=== PATIENT | male | born 1945 | race Caucasian/White ===

== ENCOUNTER 2021-11-13 23:02 | Observation (INO) ==
[2021-11-13] MEDS ORDERED: *HR* Metoprolol 5 MG/5 ML VIAL IVP ONE (23:10)
[2021-11-13 23:24] LABS: Basophils # 0.1 K/mcL (0.0-0.2); Basophils % 0.4 %; Eosinophils # 0.2 K/mcL (0.0-0.6); Eosinophils % 1.4 %; Hematocrit 37.2 % (37.5-50.1); Immature Granulocytes % 0.4 % (0-4); Lymphocytes # 1.3 K/mcL (0.6-4.6); Lymphocytes % 9.5 %; Mean Corpuscular HGB Conc 32.3 g/dL (31.6-35.5); Mean Corpuscular Hemoglobin 29.9 pg (28.0-33.3); Mean Corpuscular Volume 92.8 fL (83.0-100.0); Mean Platelet Volume 10.3 fL (9.4-12.4); Monocytes # 0.6 K/mcL (0.0-1.3); Monocytes % 4.4 %; Platelet Count 216 K/mcL (140-400); Red Blood Count 4.01 M/mcL (4.19-5.50); Red Cell Distribution Width 13.7 % (11.5-14.5); Segmented Neutrophils % 83.9 %; White Blood Count 13.1 K/mcL (4.3-11.1)
[2021-11-13 23:48] LABS: Potassium 5.5 mEq/L (3.5-5.1)
[2021-11-14 00:05] LABS: Troponin I 0.1 ng/mL (< 0.04)
[2021-11-14] MEDS ORDERED: Albuterol 2.5 MG/3 ML NEBULIZER IH ONE (00:37)
[2021-11-14] MEDS ORDERED: Acetaminophen 325 MG TABLET PO ONE (01:03)
[2021-11-14] MEDS ORDERED: Ondansetron 4 MG/2 ML VIAL IVP ONE (01:04)
[2021-11-14] MEDS ORDERED: Acetaminophen 325 MG TABLET PO PRN (03:01)
[2021-11-14] MEDS ORDERED: Naloxone 0.4 MG/ML INJ IVP PRN (03:01)
[2021-11-14] MEDS ORDERED: Ondansetron 4 MG/2 ML VIAL IVP PRN (03:01)
[2021-11-14] MEDS ORDERED: Calcium Gluconate 1gm/50mL 1 GM/50 ML BAG IVPB ONE (03:05)
[2021-11-14] MEDS ORDERED: *HR* Dextrose 50 % in Water (Syg) 50 ML SYRINGE IVP PRN (03:17)
[2021-11-14] MEDS ORDERED: D5% in Water 1,000 ML IVC PRN (03:17)
[2021-11-14] MEDS ORDERED: Dextrose 4 GM Chewable Tablets PO PRN ×2 (03:17)
[2021-11-14 04:50] LABS: Basophils # 0.1 K/mcL (0.0-0.2); Basophils % 0.5 %; Eosinophils # 0.1 K/mcL (0.0-0.6); Eosinophils % 0.6 %; Hematocrit 33.5 % (37.5-50.1); Hemoglobin 11.2 g/dL (12.9-16.9); Immature Granulocytes % 0.4 % (0-4); Lymphocytes # 1.2 K/mcL (0.6-4.6); Lymphocytes % 11.5 %; Mean Corpuscular HGB Conc 33.4 g/dL (31.6-35.5); Mean Corpuscular Hemoglobin 30.7 pg (28.0-33.3); Mean Corpuscular Volume 91.8 fL (83.0-100.0); Mean Platelet Volume 10.6 fL (9.4-12.4); Monocytes # 0.7 K/mcL (0.0-1.3); Monocytes % 6.3 %; Neutrophils # 8.3 K/mcL (1.6-8.9); Platelet Count 217 K/mcL (140-400); Red Blood Count 3.65 M/mcL (4.19-5.50); Red Cell Distribution Width 13.8 % (11.5-14.5); Segmented Neutrophils % 80.7 %; White Blood Count 10.3 K/mcL (4.3-11.1)
[2021-11-14 04:59] LABS: INR 1.1; Prothrombin Time 12.6 Seconds (9.4-12.1)
[2021-11-14 05:17] LABS: Troponin I 0.1 ng/mL (< 0.04)
[2021-11-14 05:39] LABS: Albumin 3.9 g/dL (3.5-5.7); Albumin/Globulin Ratio 1.3 (1.1-2.2); Bilirubin,Direct 0.1 mg/dL (0.0-0.2); Bilirubin,Indirect 0.4 mg/dL (0.0-1.0); Bilirubin,Total 0.5 mg/dL (0.3-1.0); Calcium 8.1 mg/dL (8.6-10.3); Magnesium 2.2 mg/dL (1.6-2.6); Potassium 5.3 mEq/L (3.5-5.1); Total Protein 6.9 g/dL (6.4-8.9)
[2021-11-14 05:56] LABS: Thyroid Stimulating Hormone 1.254 mcIU/mL (0.340-5.600)
[2021-11-14] MEDS: Insulin LISPRO 300 UNITS/3 ML VIAL SUBQ SCH ×3 (07:32→16:51)
[2021-11-14] MEDS ORDERED: *HR* Heparin 10,000 UNIT/10 ML VIAL IV PRN (08:44)
[2021-11-14] MEDS ORDERED: 0.9 % Sodium Chloride 250 ML IVC PRN (08:44)
[2021-11-14] MEDS ORDERED: 0.9 % Sodium Chloride 1,000 ML PRIME SCH (08:45)
[2021-11-14 10:05] LABS: Estimated Average Glucose 137 mg/dl; Hemoglobin A1C 6.4 %
[2021-11-14 10:18] LABS: Hepatitis B Surface Antibody < 3.10 mIU/mL
[2021-11-14 10:29] LABS: Hepatitis B Surface Antigen Nonreactive (Nonreactive)
[2021-11-14] MEDS ORDERED: *HR* Labetalol 20 MG/4 ML SYRINGE IVP PRN (13:00)
[2021-11-14] MEDS ORDERED: Calcium Acetate 667 MG CAPSULE PO SCH (17:45)
[2021-11-14 21:00] LABS: Bacteria,Urine Few per hpf (None-Few); Bilirubin,Urine Negative (Negative); Blood,Urine Small (Negative); Clarity,Urine Clear (Clear); Color,Urine Light-Yellow (Yellow); Glucose,Urine (UA) 300 mg/dL (Normal); Ketones,Urine Negative (Negative); Leukocyte Esterase,Urine Negative (Negative); Nitrite,Urine Negative (Negative); PH,Urine 6.5 pH Units (5.0-8.0); Protein,Urine >=600 mg/dL (Neg-Trace); RBC,Urine 0-3 per hpf (0-3); Specific Gravity,Urine 1.021 (1.010-1.025); Squamous Epithelial Cell,Urine Few per hpf (None-Few); Urobilinogen,Urine Normal (Normal)
[2021-11-14] MEDS ORDERED: hydrALAZINE 25 MG TABLET PO SCH (21:00)
[2021-11-14] MEDS: carvediloL 6.25 MG TABLET PO SCH (22:30)
[2021-11-15 06:56] LABS: Basophils % 0.6 %; Eosinophils # 0.1 K/mcL (0.0-0.6); Eosinophils % 2.4 %; Hematocrit 31.5 % (37.5-50.1); Hemoglobin 10.7 g/dL (12.9-16.9); Immature Granulocytes % 0.2 % (0-4); Lymphocytes # 1.5 K/mcL (0.6-4.6); Lymphocytes % 27.7 %; Mean Corpuscular Hemoglobin 30.6 pg (28.0-33.3); Mean Platelet Volume 10.5 fL (9.4-12.4); Monocytes # 0.5 K/mcL (0.0-1.3); Neutrophils # 3.2 K/mcL (1.6-8.9); Platelet Count 183 K/mcL (140-400); Red Cell Distribution Width 13.7 % (11.5-14.5); Segmented Neutrophils % 59.1 %; White Blood Count 5.4 K/mcL (4.3-11.1)
[2021-11-15 07:18] LABS: Calcium 8.3 mg/dL (8.6-10.3); Magnesium 2.1 mg/dL (1.6-2.6); Phosphorous 6.4 mg/dL (2.7-4.5); Potassium 4.4 mEq/L (3.5-5.1)
[2021-11-15 07:30] VITALS: O2SAT 94
[2021-11-15] MEDS: carvediloL 6.25 MG TABLET PO SCH (07:48)
[2021-11-15] MEDS: Insulin LISPRO 300 UNITS/3 ML VIAL SUBQ SCH (07:48)
[2021-11-15] MEDS ORDERED: Calcium Acetate 667 MG CAPSULE PO SCH (08:00)
[2021-11-15] MEDS ORDERED: Perflutren Lipid Microsphere 1.3 ML in 0.9 % Sodium Chloride 8.7 ML IVP PRN (08:20)
[2021-11-15] MEDS ORDERED: Isosorbide MONOnitrate (24 HR) 30 MG TAB.ER.24H PO SCH (09:00)
[2021-11-15] MEDS ORDERED: Aspirin Enteric Coated 81 MG Tablet PO SCH (09:00)
[2021-11-15] MEDS ORDERED: Cholecalciferol (D-3) 1,000 UNIT (25MCG) TABLET PO SCH (09:00)
[2021-11-15] MEDS ORDERED: *HR* Promethazine 25 MG/ML VIAL IM ONE (09:23)
[2021-11-15 09:36] VITALS: BP 113/74; PULSE 87; TEMP 96.9
== END 2021-11-15 09:40 | disposition left against medical advice (07) ==
LOC: EMEROOARM 23:02 → 2ANU 23:02 → SUATTDRO 11-14 01:17 → 2ANU 11-14 02:03
PROVIDERS: ADMIT Internal Medicine; ATTEND Pharmacist

== ENCOUNTER 2021-11-28 16:11 | Inpatient (IN) ==
[2021-11-28] MEDS ORDERED: Ondansetron ODT 4 MG TAB.RAPDIS SL PRN (20:18)
[2021-11-28] MEDS ORDERED: Acetaminophen 325 MG TABLET PO PRN (20:18)
[2021-11-28] MEDS ORDERED: Naloxone 0.4 MG/ML INJ IVP PRN (20:18)
[2021-11-28] MEDS ORDERED: Melatonin 3 MG TABLET PO PRN (20:18)
[2021-11-28 21:02] LABS: Basophils % 0.5 %; Eosinophils # 0.2 K/mcL (0.0-0.6); Eosinophils % 2.7 %; Hematocrit 33.8 % (37.5-50.1); Hemoglobin 11.6 g/dL (12.9-16.9); Immature Granulocytes % 0.2 % (0-4); Lymphocytes # 1.5 K/mcL (0.6-4.6); Lymphocytes % 18.2 %; Mean Corpuscular HGB Conc 34.3 g/dL (31.6-35.5); Mean Corpuscular Hemoglobin 31.1 pg (28.0-33.3); Mean Corpuscular Volume 90.6 fL (83.0-100.0); Mean Platelet Volume 10.5 fL (9.4-12.4); Monocytes # 0.6 K/mcL (0.0-1.3); Monocytes % 7.1 %; Neutrophils # 5.9 K/mcL (1.6-8.9); Platelet Count 199 K/mcL (140-400); Red Blood Count 3.73 M/mcL (4.19-5.50); Segmented Neutrophils % 71.3 %; White Blood Count 8.2 K/mcL (4.3-11.1)
[2021-11-28 21:10] LABS: INR 1.1; Prothrombin Time 12.1 Seconds (9.4-12.1)
[2021-11-28 21:25] LABS: Albumin 3.8 g/dL (3.5-5.7); Albumin/Globulin Ratio 1.3 (1.1-2.2); Bilirubin,Total 0.5 mg/dL (0.3-1.0); Calcium 9.1 mg/dL (8.6-10.3); Chol/HDL Ratio 5.5 (0-4.9); Magnesium 1.9 mg/dL (1.6-2.6); Phosphorous 3.7 mg/dL (2.7-4.5); Potassium 3.6 mEq/L (3.5-5.1); Total Protein 6.8 g/dL (6.4-8.9); Troponin I 4.7 ng/mL (< 0.04)
[2021-11-28] MEDS ORDERED: *HR* Heparin 5,000 UNIT/ML VIAL IVP PRN ×2 (21:26)
[2021-11-28] MEDS ORDERED: *HR* Heparin 5,000 UNIT/ML VIAL IVP ONE (21:26)
[2021-11-28] MEDS ORDERED: Heparin 25,000UNIT/250ML 1/2NS 25,000 UNIT/250 ML IV.SOLN IVC SCH (21:30)
[2021-11-28] MEDS ORDERED: *HR* Dextrose 50 % in Water (Syg) 50 ML SYRINGE IVP PRN (21:41)
[2021-11-28] MEDS ORDERED: D5% in Water 1,000 ML IVC PRN (21:41)
[2021-11-28] MEDS ORDERED: Dextrose 4 GM Chewable Tablets PO PRN ×2 (21:41)
[2021-11-28] MEDS ORDERED: Perflutren Lipid Microsphere 1.3 ML in 0.9 % Sodium Chloride 8.7 ML IVP PRN (21:50)
[2021-11-28] MEDS: Insulin DETEMIR 100 UNIT/ML X5UNITS SUBQ SCH (22:07)
[2021-11-29 02:12] LABS: Basophils % 0.4 %; Eosinophils # 0.4 K/mcL (0.0-0.6); Eosinophils % 4.6 %; Hematocrit 31.8 % (37.5-50.1); Hemoglobin 10.9 g/dL (12.9-16.9); Immature Granulocytes % 0.2 % (0-4); Lymphocytes # 1.6 K/mcL (0.6-4.6); Lymphocytes % 20.1 %; Mean Corpuscular HGB Conc 34.3 g/dL (31.6-35.5); Mean Corpuscular Hemoglobin 30.9 pg (28.0-33.3); Mean Corpuscular Volume 90.1 fL (83.0-100.0); Mean Platelet Volume 10.6 fL (9.4-12.4); Monocytes # 0.7 K/mcL (0.0-1.3); Monocytes % 8.1 %; Neutrophils # 5.4 K/mcL (1.6-8.9); Platelet Count 188 K/mcL (140-400); Red Blood Count 3.53 M/mcL (4.19-5.50); Segmented Neutrophils % 66.6 %; White Blood Count 8.1 K/mcL (4.3-11.1)
[2021-11-29 02:22] LABS: INR 1.1; Prothrombin Time 12.7 Seconds (9.4-12.1)
[2021-11-29 03:15] LABS: Calcium 8.4 mg/dL (8.6-10.3); Magnesium 1.9 mg/dL (1.6-2.6); Potassium 3.6 mEq/L (3.5-5.1); Thyroid Stimulating Hormone 0.913 mcIU/mL (0.340-5.600)
[2021-11-29] MEDS: Insulin LISPRO 300 UNITS/3 ML VIAL SUBQ SCH ×3 (09:54→16:57)
[2021-11-29] MEDS: Aspirin Enteric Coated 81 MG Tablet PO SCH (10:40)
[2021-11-29] MEDS: carvediloL 6.25 MG TABLET PO SCH ×2 (10:40→16:24)
[2021-11-29] MEDS ORDERED: *HR* Heparin 10,000 UNIT/10 ML VIAL ONE (11:50)
[2021-11-29] MEDS ORDERED: Heparin 1,000 UNITS/500 mL 500 ML ONE (11:51)
[2021-11-29] MEDS ORDERED: ISOVUE-370 200 ML INFUS..BTL ONE ×2 (11:52→13:21)
[2021-11-29] MEDS ORDERED: 0.9 % Sodium Chloride 1,000 ML ONE (11:52)
[2021-11-29] MEDS ORDERED: Nitroglycerin 1,000 MCG/5 ML VIAL IV ONE (11:52)
[2021-11-29] MEDS ORDERED: *HR* FentaNYL (PF) 100 MCG/2 ML VIAL ONE (12:06)
[2021-11-29] MEDS ORDERED: *HR* Midazolam HCl 2 MG/2 ML VIAL ONE (12:06)
[2021-11-29] MEDS ORDERED: *HR* Ticagrelor 90 MG TABLET ONE (13:02)
[2021-11-29] MEDS: Insulin DETEMIR 100 UNIT/ML X5UNITS SUBQ SCH (20:10)
[2021-11-30 04:09] LABS: Hematocrit 30.1 % (37.5-50.1); Hemoglobin 10.1 g/dL (12.9-16.9); Mean Corpuscular HGB Conc 33.6 g/dL (31.6-35.5); Mean Corpuscular Hemoglobin 30.5 pg (28.0-33.3); Mean Corpuscular Volume 90.9 fL (83.0-100.0); Mean Platelet Volume 10.8 fL (9.4-12.4); Platelet Count 177 K/mcL (140-400); Red Blood Count 3.31 M/mcL (4.19-5.50); Red Cell Distribution Width 13.2 % (11.5-14.5); White Blood Count 6.4 K/mcL (4.3-11.1)
[2021-11-30 04:25] LABS: Calcium 8.3 mg/dL (8.6-10.3); Potassium 3.9 mEq/L (3.5-5.1)
[2021-11-30 07:27] VITALS: PULSE 79; O2SAT 96
[2021-11-30] MEDS ORDERED: 0.9 % Sodium Chloride 250 ML IVC PRN (08:12)
[2021-11-30] MEDS ORDERED: *HR* Heparin 10,000 UNIT/10 ML VIAL IV PRN (08:12)
[2021-11-30] MEDS ORDERED: 0.9 % Sodium Chloride 1,000 ML PRIME SCH (08:15)
[2021-11-30] MEDS: Aspirin Enteric Coated 81 MG Tablet PO SCH (08:28)
[2021-11-30] MEDS: carvediloL 6.25 MG TABLET PO SCH (08:29)
[2021-11-30] MEDS: Insulin LISPRO 300 UNITS/3 ML VIAL SUBQ SCH ×2 (08:30→12:24)
[2021-11-30 13:23] VITALS: BP 172/95; TEMP 98.7
[2021-11-30] MEDS ORDERED: Apixaban 5 MG TABLET PO SCH (21:00)
== END 2021-11-30 15:30 | disposition home or self-care (01) | DRG 246 ==
LOC: 2ANU → SUATTDRO 11-29 10:47
PROVIDERS: ADMIT Internal Medicine; ATTEND Pharmacist

== ENCOUNTER 2022-01-02 22:35 | Observation (INO) ==
[2022-01-02] MEDS ORDERED: GI Cocktail 40 ML EACH PO ONE (23:13)
[2022-01-02] MEDS ORDERED: hydrALAZINE 25 MG TABLET PO ONE (23:30)
[2022-01-02] MEDS ORDERED: Isosorbide MONOnitrate (24 HR) 30 MG TAB.ER.24H PO ONE (23:31)
[2022-01-02] MEDS ORDERED: carvediloL 6.25 MG TABLET PO ONE (23:32)
[2022-01-02 23:54] LABS: Basophils % 0.4 %; Eosinophils # 0.2 K/mcL (0.0-0.6); Eosinophils % 2.4 %; Hematocrit 34.3 % (37.5-50.1); Hemoglobin 11.3 g/dL (12.9-16.9); Immature Granulocytes % 0.6 % (0-4); Lymphocytes # 1.1 K/mcL (0.6-4.6); Lymphocytes % 16.2 %; Mean Corpuscular HGB Conc 32.9 g/dL (31.6-35.5); Mean Corpuscular Hemoglobin 30.6 pg (28.0-33.3); Mean Platelet Volume 10.1 fL (9.4-12.4); Monocytes # 0.5 K/mcL (0.0-1.3); Monocytes % 6.4 %; Neutrophils # 5.2 K/mcL (1.6-8.9); Platelet Count 230 K/mcL (140-400); Red Blood Count 3.69 M/mcL (4.19-5.50); Red Cell Distribution Width 12.7 % (11.5-14.5)
[2022-01-02 23:56] LABS: Albumin/Globulin Ratio 1.4 (1.1-2.2); Bilirubin,Indirect 0.4 mg/dL (0.0-1.0); Bilirubin,Total 0.4 mg/dL (0.3-1.0); Calcium 9.1 mg/dL (8.6-10.3); Globulin 2.8 g/dL (2.4-3.5); Potassium 4.4 mEq/L (3.5-5.1); Total Protein 6.8 g/dL (6.4-8.9)
[2022-01-03] LABS: Troponin I 0.08 ng/mL (< 0.04)
[2022-01-03 00:03] LABS: INR 1.1; Prothrombin Time 12.2 Seconds (9.4-12.1)
[2022-01-03 00:06] LABS: Activated Partial Thrombo Time 35.3 Seconds (26.0-36.0)
[2022-01-03] MEDS ORDERED: Acetaminophen 325 MG TABLET PO PRN (02:17)
[2022-01-03] MEDS ORDERED: Melatonin 3 MG TABLET PO PRN (02:17)
[2022-01-03] MEDS ORDERED: Naloxone 0.4 MG/ML INJ IVP PRN (02:17)
[2022-01-03] MEDS ORDERED: Dextrose 4 GM Chewable Tablets PO PRN ×4 (02:19→23:30)
[2022-01-03] MEDS ORDERED: *HR* Dextrose 50 % in Water (Syg) 50 ML SYRINGE IVP PRN ×2 (02:19→23:30)
[2022-01-03] MEDS ORDERED: D5% in Water 1,000 ML IVC PRN ×2 (02:19→23:30)
[2022-01-03 06:25] LABS: Basophils # 0.1 K/mcL (0.0-0.2); Basophils % 0.6 %; Eosinophils # 0.3 K/mcL (0.0-0.6); Eosinophils % 3.6 %; Hematocrit 30.6 % (37.5-50.1); Immature Granulocytes % 0.4 % (0-4); Lymphocytes # 1.6 K/mcL (0.6-4.6); Lymphocytes % 19.5 %; Mean Corpuscular HGB Conc 32.7 g/dL (31.6-35.5); Mean Corpuscular Hemoglobin 30.1 pg (28.0-33.3); Mean Corpuscular Volume 92.2 fL (83.0-100.0); Mean Platelet Volume 10.1 fL (9.4-12.4); Monocytes # 0.8 K/mcL (0.0-1.3); Monocytes % 9.5 %; Neutrophils # 5.3 K/mcL (1.6-8.9); Platelet Count 213 K/mcL (140-400); Red Blood Count 3.32 M/mcL (4.19-5.50); Red Cell Distribution Width 12.7 % (11.5-14.5); Segmented Neutrophils % 66.4 %
[2022-01-03 06:37] LABS: Albumin 3.6 g/dL (3.5-5.7); Albumin/Globulin Ratio 1.3 (1.1-2.2); Bilirubin,Total 0.4 mg/dL (0.3-1.0); Calcium 8.7 mg/dL (8.6-10.3); Globulin 2.8 g/dL (2.4-3.5); Magnesium 2.5 mg/dL (1.6-2.6); Potassium 4.2 mEq/L (3.5-5.1); Total Protein 6.4 g/dL (6.4-8.9)
[2022-01-03 06:41] LABS: Troponin I 0.47 ng/mL (< 0.04)
[2022-01-03] MEDS: Insulin LISPRO 300 UNITS/3 ML VIAL SUBQ SCH ×3 (06:54→17:57)
[2022-01-03] MEDS: Calcium Acetate 667 MG CAPSULE PO SCH ×4 (08:31→17:46)
[2022-01-03] MEDS ORDERED: Metoclopramide 10 MG/2 ML VIAL IVP PRN (10:10)
[2022-01-03] MEDS ORDERED: Pantoprazole 40 MG VIAL IVP ONE (10:11)
[2022-01-03] MEDS: Ondansetron 4 MG/2 ML VIAL IVP PRN (10:13)
[2022-01-03] MEDS: Nitroglycerin 0.4 MG TAB.SUBL SL PRN ×3 (11:12→11:35)
[2022-01-03] MEDS ORDERED: *HR* Metoprolol 5 MG/5 ML VIAL IVP ONE ×3 (11:16→11:42)
[2022-01-03 11:17] LABS: Hepatitis B Surface Antibody < 3.10 mIU/mL
[2022-01-03] MEDS ORDERED: *HR* Metoprolol 5 MG/5 ML VIAL IVP STA ×2 (11:19→11:34)
[2022-01-03 11:28] LABS: Hepatitis B Surface Antigen Nonreactive (Nonreactive)
[2022-01-03] MEDS ORDERED: *HR* Heparin 5,000 UNIT/ML VIAL IVP PRN ×2 (11:39)
[2022-01-03] MEDS ORDERED: *HR* Heparin 5,000 UNIT/ML VIAL IVP ONE (11:39)
[2022-01-03] MEDS ORDERED: GI Cocktail 40 ML EACH PO ONE (11:44)
[2022-01-03] MEDS ORDERED: Heparin 25,000UNIT/250ML 1/2NS 25,000 UNIT/250 ML IV.SOLN IVC SCH (11:45)
[2022-01-03] MEDS: Heparin 25,000UNIT/250ML 1/2NS 25,000 UNIT/250 ML IV.SOLN IVC SCH (12:29)
[2022-01-03 13:04] LABS: Heparin anti-factor XA UFH 0.75 IU/mL (0.30-0.70); INR 1.1; Prothrombin Time 12.5 Seconds (9.4-12.1)
[2022-01-03] MEDS: carvediloL 6.25 MG TABLET PO SCH ×2 (14:53→15:22)
[2022-01-03] MEDS: hydrALAZINE 25 MG TABLET PO SCH ×3 (14:54→23:36)
[2022-01-03] MEDS: Aspirin Enteric Coated 81 MG Tablet PO SCH (15:22)
[2022-01-03] MEDS: Isosorbide MONOnitrate (24 HR) 30 MG TAB.ER.24H PO SCH ×2 (15:23→17:56)
[2022-01-03] MEDS: Cholecalciferol (D-3) 1,000 UNIT (25MCG) TABLET PO SCH ×2 (15:23→17:56)
[2022-01-03] MEDS ORDERED: *HR* Heparin 10,000 UNIT/10 ML VIAL ONE (15:37)
[2022-01-03] MEDS ORDERED: *HR* FentaNYL (PF) 100 MCG/2 ML VIAL ONE (15:37)
[2022-01-03] MEDS ORDERED: *HR* Midazolam HCl 2 MG/2 ML VIAL ONE (15:37)
[2022-01-03] MEDS ORDERED: 0.9 % Sodium Chloride 2,000 ML ONE (15:38)
[2022-01-03] MEDS ORDERED: Heparin 1,000 UNITS/500 mL 500 ML ONE (15:38)
[2022-01-03] MEDS ORDERED: ISOVUE-370 200 ML INFUS..BTL ONE ×2 (15:38→16:28)
[2022-01-03] MEDS ORDERED: Nitroglycerin 1,000 MCG/5 ML VIAL IV ONE (15:38)
[2022-01-03] MEDS ORDERED: Perflutren Lipid Microsphere 1.3 ML in 0.9 % Sodium Chloride 8.7 ML IVP PRN (15:50)
[2022-01-03] MEDS ORDERED: Tirofiban 12.5 MG/250ML 12.5 MG/250 ML BAG ONE (16:11)
[2022-01-03] MEDS ORDERED: *HR* Ticagrelor 90 MG TABLET ONE (16:57)
[2022-01-03] MEDS ORDERED: *HR* Heparin 5,000 UNIT/ML VIAL SQ SCH (18:00)
[2022-01-03] MEDS ORDERED: Insulin LISPRO 300 UNITS/3 ML VIAL SUBQ SCH (23:45)
[2022-01-04 01:36] LABS: Hematocrit 28.2 % (37.5-50.1); Hemoglobin 9.4 g/dL (12.9-16.9)
[2022-01-04 02:10] LABS: Calcium 8.3 mg/dL (8.6-10.3); Potassium 4.7 mEq/L (3.5-5.1)
[2022-01-04 02:11] LABS: BUN/Creatinine Ratio 6 (6-26); Blood Urea Nitrogen 51 mg/dL (8-23); eGFR For African Americans 8 (> 60); eGFR For Non-African Americans 6 (> 60)
[2022-01-04 07:10] VITALS: PULSE 92
[2022-01-04] MEDS ORDERED: Loratadine 10 MG TABLET PO PRN (07:30)
[2022-01-04] MEDS: Ondansetron 4 MG/2 ML VIAL IVP PRN (08:18)
[2022-01-04] MEDS: carvediloL 6.25 MG TABLET PO SCH (08:18)
[2022-01-04] MEDS: Aspirin Enteric Coated 81 MG Tablet PO SCH (08:18)
[2022-01-04] MEDS: Calcium Acetate 667 MG CAPSULE PO SCH ×3 (08:29→13:41)
[2022-01-04] MEDS: Insulin LISPRO 300 UNITS/3 ML VIAL SUBQ SCH ×2 (08:29→13:10)
[2022-01-04] MEDS: hydrALAZINE 25 MG TABLET PO SCH (08:29)
[2022-01-04] MEDS ORDERED: *HR* Heparin 10,000 UNIT/10 ML VIAL IV PRN (08:32)
[2022-01-04] MEDS ORDERED: 0.9 % Sodium Chloride 250 ML IVC PRN (08:32)
[2022-01-04] MEDS ORDERED: 0.9 % Sodium Chloride 1,000 ML PRIME SCH (08:45)
[2022-01-04] MEDS ORDERED: *HR* Ticagrelor 90 MG TABLET PO SCH (09:00)
[2022-01-04] MEDS ORDERED: Pantoprazole 40 MG VIAL IVP SCH (09:00)
[2022-01-04] MEDS: Isosorbide MONOnitrate (24 HR) 30 MG TAB.ER.24H PO SCH (10:55)
[2022-01-04] MEDS: Cholecalciferol (D-3) 1,000 UNIT (25MCG) TABLET PO SCH (10:55)
[2022-01-04] MEDS ORDERED: Cholecalciferol (D-3) 1,000 UNIT (25MCG) TABLET PO SCH (12:00)
[2022-01-04 13:34] VITALS: BP 101/62; TEMP 98.8
[2022-01-04] MEDS: Heparin 25,000UNIT/250ML 1/2NS 25,000 UNIT/250 ML IV.SOLN IVC SCH (13:41)
[2022-01-04 14:33] VITALS: O2SAT 94
[2022-01-04] MEDS ORDERED: Isosorbide MONOnitrate (24 HR) 30 MG TAB.ER.24H PO SCH ×2 (18:00)
[2022-01-04] MEDS ORDERED: Apixaban 5 MG TABLET PO SCH (21:00)
[2022-01-04] MEDS ORDERED: traZODone 50 MG TABLET PO SCH (21:00)
== END 2022-01-04 16:30 | disposition home or self-care (01) ==
LOC: EMEROOARM 22:35 → 2ANU 22:35 → SUATTDRO 01-03 00:22 → 2ANU 01-03 02:01
PROVIDERS: ADMIT Internal Medicine; ATTEND Internal Medicine

== ENCOUNTER 2022-01-06 19:40 | Inpatient (IN) ==
[2022-01-06] MEDS ORDERED: 0.9 % Sodium Chloride 1,000 ML IVC ONE (20:05)
[2022-01-06] MEDS ORDERED: cefTRIAXone 1,000 MG in 0.9 % Sodium Chloride 10 ML IVP ONE (20:06)
[2022-01-06] MEDS ORDERED: Ondansetron 4 MG/2 ML VIAL IM ONE (20:34)
[2022-01-06] MEDS ORDERED: Ondansetron 4 MG/2 ML VIAL IVP PRN (20:45)
[2022-01-06 20:57] LABS: Basophils % 0.3 %; Eosinophils % 0.1 %; Hematocrit 30.4 % (37.5-50.1); Hemoglobin 10.2 g/dL (12.9-16.9); Immature Granulocytes % 0.3 % (0-4); Lymphocytes # 0.4 K/mcL (0.6-4.6); Lymphocytes % 4.4 %; Mean Corpuscular HGB Conc 33.6 g/dL (31.6-35.5); Mean Corpuscular Hemoglobin 30.4 pg (28.0-33.3); Mean Corpuscular Volume 90.5 fL (83.0-100.0); Mean Platelet Volume 10.4 fL (9.4-12.4); Monocytes # 0.5 K/mcL (0.0-1.3); Neutrophils # 8.1 K/mcL (1.6-8.9); Platelet Count 170 K/mcL (140-400); Red Blood Count 3.36 M/mcL (4.19-5.50); Red Cell Distribution Width 12.6 % (11.5-14.5); Segmented Neutrophils % 89.9 %
[2022-01-06 21:04] LABS: INR 1.3; Prothrombin Time 14.3 Seconds (9.4-12.1)
[2022-01-06 21:07] LABS: Activated Partial Thrombo Time 34.4 Seconds (26.0-36.0)
[2022-01-06 21:19] LABS: Albumin 3.8 g/dL (3.5-5.7); Albumin/Globulin Ratio 1.2 (1.1-2.2); Bilirubin,Direct 0.1 mg/dL (0.0-0.2); Bilirubin,Indirect 0.5 mg/dL (0.0-1.0); Bilirubin,Total 0.6 mg/dL (0.3-1.0); Calcium 8.2 mg/dL (8.6-10.3); Globulin 3.3 g/dL (2.4-3.5); Magnesium 2.2 mg/dL (1.6-2.6); Phosphorous 5.1 mg/dL (2.7-4.5); Potassium 5.3 mEq/L (3.5-5.1); Total Protein 7.1 g/dL (6.4-8.9); Troponin I 7.49 ng/mL (< 0.04)
[2022-01-06 21:27] LABS: Influenza A PCR Negative (Negative); Influenza B PCR Negative (Negative); Resp. Syncytial Virus PCR Negative (Negative)
[2022-01-06 21:28] LABS: SARS-CoV-2 by PCR (In House) Negative (Negative)
[2022-01-07] MEDS ORDERED: Ondansetron 4 MG/2 ML VIAL IVP PRN (00:25)
[2022-01-07] MEDS ORDERED: Acetaminophen 325 MG TABLET PO PRN (00:25)
[2022-01-07] MEDS ORDERED: Naloxone 0.4 MG/ML INJ IVP PRN (00:25)
[2022-01-07 01:54] LABS: Basophils % 0.3 %; Hematocrit 26.9 % (37.5-50.1); Hemoglobin 8.8 g/dL (12.9-16.9); Immature Granulocytes % 0.4 % (0-4); Lymphocytes # 0.5 K/mcL (0.6-4.6); Lymphocytes % 6.7 %; Mean Corpuscular HGB Conc 32.7 g/dL (31.6-35.5); Mean Corpuscular Hemoglobin 30.2 pg (28.0-33.3); Mean Corpuscular Volume 92.4 fL (83.0-100.0); Mean Platelet Volume 10.8 fL (9.4-12.4); Monocytes # 0.6 K/mcL (0.0-1.3); Monocytes % 8.2 %; Neutrophils # 5.6 K/mcL (1.6-8.9); Platelet Count 155 K/mcL (140-400); Red Blood Count 2.91 M/mcL (4.19-5.50); Red Cell Distribution Width 12.7 % (11.5-14.5); Segmented Neutrophils % 84.4 %; White Blood Count 6.7 K/mcL (4.3-11.1)
[2022-01-07 02:13] LABS: Albumin 3.4 g/dL (3.5-5.7); Albumin/Globulin Ratio 1.2 (1.1-2.2); Bilirubin,Total 0.4 mg/dL (0.3-1.0); Calcium 7.5 mg/dL (8.6-10.3); Globulin 2.8 g/dL (2.4-3.5); Potassium 4.8 mEq/L (3.5-5.1); Total Protein 6.2 g/dL (6.4-8.9)
[2022-01-07] MEDS: Azithromycin 500 MG in D5% in Water 250 ML IVPB SCH (02:37)
[2022-01-07] MEDS: Melatonin 3 MG TABLET PO PRN ×2 (02:38→20:36)
[2022-01-07] MEDS ORDERED: D5% in Water 1,000 ML IVC PRN (02:49)
[2022-01-07] MEDS ORDERED: *HR* Dextrose 50 % in Water (Syg) 50 ML SYRINGE IVP PRN (02:49)
[2022-01-07] MEDS ORDERED: Dextrose 4 GM Chewable Tablets PO PRN ×2 (02:49)
[2022-01-07 02:59] LABS: Troponin I 5.61 ng/mL (< 0.04)
[2022-01-07] MEDS ORDERED: *HR* Heparin 5,000 UNIT/ML VIAL SQ SCH (06:00)
[2022-01-07] MEDS ORDERED: Calcium Acetate 667 MG CAPSULE PO PRN (07:30)
[2022-01-07] MEDS: Insulin LISPRO 300 UNITS/3 ML VIAL SUBQ SCH ×4 (07:30→20:53)
[2022-01-07] MEDS ORDERED: *HR* Promethazine 25 MG/ML VIAL IM PRN (08:17)
[2022-01-07] MEDS: Piperacillin/Tazobactam 3.375 GM in 0.9 % Sodium Chloride Mini Bag 100 ML IVPB SCH ×2 (08:22→20:08)
[2022-01-07] MEDS ORDERED: *HR* Heparin 10,000 UNIT/10 ML VIAL IV PRN (08:35)
[2022-01-07] MEDS ORDERED: 0.9 % Sodium Chloride 250 ML IVC PRN (08:35)
[2022-01-07] MEDS ORDERED: 0.9 % Sodium Chloride 1,000 ML PRIME SCH (08:45)
[2022-01-07 09:47] LABS: Bilirubin,Urine Negative (Negative); Blood,Urine Small (Negative); Clarity,Urine Clear (Clear); Color,Urine Yellow (Yellow); Glucose,Urine (UA) 100 mg/dL (Normal); Ketones,Urine Negative (Negative); Leukocyte Esterase,Urine Trace (Negative); Nitrite,Urine Negative (Negative); Protein,Urine >=300 mg/dL (Neg-Trace); Specific Gravity,Urine 1.025 (1.010-1.025); Urobilinogen,Urine Normal (Normal)
[2022-01-07] MEDS: carvediloL 6.25 MG TABLET PO SCH ×2 (09:48→18:02)
[2022-01-07] MEDS: Calcium Acetate 667 MG CAPSULE PO SCH ×3 (09:49→18:03)
[2022-01-07] MEDS: Aspirin Enteric Coated 81 MG Tablet PO SCH (09:49)
[2022-01-07] MEDS: Apixaban 5 MG TABLET PO SCH ×4 (09:49→22:49)
[2022-01-07] MEDS: *HR* Ticagrelor 90 MG TABLET PO SCH ×3 (09:49→20:10)
[2022-01-07 09:55] LABS: Squamous Epithelial Cell,Urine Present per hpf (None-Few)
[2022-01-07 09:57] LABS: RBC,Urine Present per hpf (0-3)
[2022-01-07 09:58] LABS: Bacteria,Urine Present per hpf (None-Few); WBC,Urine Present per hpf (0-3)
[2022-01-07] MEDS ORDERED: Acetaminophen 650 MG RECTAL SUPP RC ONE (10:20)
[2022-01-07] MEDS: Pantoprazole 40 MG VIAL IVP SCH (10:38)
[2022-01-07] MEDS ORDERED: Ipratropium Neb 0.5 MG NEBULIZER IH PRN (11:40)
[2022-01-07] MEDS: Ondansetron 4 MG/2 ML VIAL IVP SCH ×2 (14:50→20:09)
[2022-01-07 14:55] LABS: Hematocrit 27.3 % (37.5-50.1); Hemoglobin 9.1 g/dL (12.9-16.9)
[2022-01-07] MEDS ORDERED: Ondansetron 4 MG/2 ML VIAL IVP SCH (15:00)
[2022-01-07] MEDS: Mirtazapine 15 MG TABLET PO SCH ×2 (20:10→20:54)
[2022-01-08] MEDS: Azithromycin 500 MG in D5% in Water 250 ML IVPB SCH (02:44)
[2022-01-08 08:14] LABS: Basophils % 0.5 %; Eosinophils # 0.1 K/mcL (0.0-0.6); Eosinophils % 1.8 %; Hemoglobin 8.9 g/dL (12.9-16.9); Immature Granulocytes % 0.3 % (0-4); Lymphocytes # 0.7 K/mcL (0.6-4.6); Lymphocytes % 16.3 %; Mean Corpuscular Volume 90.9 fL (83.0-100.0); Mean Platelet Volume 10.6 fL (9.4-12.4); Monocytes # 0.6 K/mcL (0.0-1.3); Neutrophils # 2.7 K/mcL (1.6-8.9); Platelet Count 145 K/mcL (140-400); Red Blood Count 2.97 M/mcL (4.19-5.50); Red Cell Distribution Width 12.8 % (11.5-14.5); Segmented Neutrophils % 66.1 %
[2022-01-08 08:36] LABS: Magnesium 2.2 mg/dL (1.6-2.6); Phosphorous 5.3 mg/dL (2.7-4.5); Potassium 4.1 mEq/L (3.5-5.1)
[2022-01-08] MEDS: Insulin LISPRO 300 UNITS/3 ML VIAL SUBQ SCH ×4 (09:24→20:08)
[2022-01-08] MEDS: Ondansetron 4 MG/2 ML VIAL IVP SCH ×3 (09:26→20:00)
[2022-01-08] MEDS: Pantoprazole 40 MG VIAL IVP SCH (09:26)
[2022-01-08] MEDS: Calcium Acetate 667 MG CAPSULE PO SCH ×3 (09:26→17:39)
[2022-01-08] MEDS: *HR* Ticagrelor 90 MG TABLET PO SCH ×2 (09:26→20:00)
[2022-01-08] MEDS: carvediloL 6.25 MG TABLET PO SCH ×2 (09:26→17:39)
[2022-01-08] MEDS: Aspirin Enteric Coated 81 MG Tablet PO SCH (09:26)
[2022-01-08] MEDS: Piperacillin/Tazobactam 3.375 GM in 0.9 % Sodium Chloride Mini Bag 100 ML IVPB SCH ×2 (09:27→20:01)
[2022-01-08] MEDS: Apixaban 5 MG TABLET PO SCH ×2 (13:38→23:38)
[2022-01-08] MEDS ORDERED: Lidocaine -MPF 2% 2 ML VIAL ONE (18:10)
[2022-01-08] MEDS ORDERED: *HR* Propofol 200 MG/20 ML VIAL IVP ONE (18:10)
[2022-01-08] MEDS: Mirtazapine 15 MG TABLET PO SCH (19:58)
[2022-01-09 03:04] LABS: Basophils % 0.9 %; Eosinophils # 0.1 K/mcL (0.0-0.6); Eosinophils % 2.9 %; Hematocrit 25.6 % (37.5-50.1); Hemoglobin 8.5 g/dL (12.9-16.9); Immature Granulocytes % 0.4 % (0-4); Lymphocytes # 0.9 K/mcL (0.6-4.6); Lymphocytes % 19.1 %; Mean Corpuscular HGB Conc 33.2 g/dL (31.6-35.5); Mean Corpuscular Hemoglobin 30.1 pg (28.0-33.3); Mean Corpuscular Volume 90.8 fL (83.0-100.0); Mean Platelet Volume 11.1 fL (9.4-12.4); Monocytes # 0.7 K/mcL (0.0-1.3); Monocytes % 16.1 %; Neutrophils # 2.7 K/mcL (1.6-8.9); Platelet Count 153 K/mcL (140-400); Red Blood Count 2.82 M/mcL (4.19-5.50); Red Cell Distribution Width 12.6 % (11.5-14.5); Segmented Neutrophils % 60.6 %; White Blood Count 4.5 K/mcL (4.3-11.1)
[2022-01-09 03:21] LABS: Calcium 7.5 mg/dL (8.6-10.3); Magnesium 2.2 mg/dL (1.6-2.6); Phosphorous 4.1 mg/dL (2.7-4.5); Potassium 3.4 mEq/L (3.5-5.1)
[2022-01-09] MEDS: Pantoprazole 40 MG VIAL IVP SCH (08:46)
[2022-01-09] MEDS: Piperacillin/Tazobactam 3.375 GM in 0.9 % Sodium Chloride Mini Bag 100 ML IVPB SCH (08:46)
[2022-01-09] MEDS: Ondansetron 4 MG/2 ML VIAL IVP SCH (08:47)
[2022-01-09] MEDS: *HR* Ticagrelor 90 MG TABLET PO SCH (08:47)
[2022-01-09] MEDS: Calcium Acetate 667 MG CAPSULE PO SCH ×2 (08:47→11:55)
[2022-01-09] MEDS: Aspirin Enteric Coated 81 MG Tablet PO SCH (08:48)
[2022-01-09] MEDS ORDERED: 0.9 % Sodium Chloride 250 ML IVC PRN (08:50)
[2022-01-09] MEDS ORDERED: *HR* Heparin 10,000 UNIT/10 ML VIAL IV PRN (08:50)
[2022-01-09] MEDS: carvediloL 6.25 MG TABLET PO SCH ×2 (08:52→17:22)
[2022-01-09] MEDS: Insulin LISPRO 300 UNITS/3 ML VIAL SUBQ SCH ×2 (08:54→12:01)
[2022-01-09 10:42] VITALS: PULSE 88; O2SAT 92
[2022-01-09] MEDS: Apixaban 5 MG TABLET PO SCH (11:55)
[2022-01-09] MEDS ORDERED: Ondansetron 4 MG/2 ML VIAL IVP PRN (13:38)
[2022-01-09 15:54] VITALS: TEMP 98.9
[2022-01-09 17:20] VITALS: BP 174/84
[2022-01-11 10:47] LABS: ANA IgG by ELISA NONE DETECTED (None Detected)
== END 2022-01-09 18:08 | disposition home health service (06) | DRG 177 ==
LOC: EMEROOARM 19:40 → 2NENU 19:40 → SUATTDRO 23:23 → 2NENU 01-07 00:10 → SUATTDRO 01-08 17:01
PROVIDERS: ADMIT Internal Medicine; ATTEND Internal Medicine
PROC: ENDOEBX (2022-01-08 18:40)

== ENCOUNTER 2022-02-25 05:38 | Inpatient (IN) ==
[2022-02-25] MEDS ORDERED: Ipratropium/Albuterol Neb 3 ML ONE (05:50)
[2022-02-25] MEDS ORDERED: Ipratropium/Albuterol Neb 3 ML IH ONE (05:52)
[2022-02-25] MEDS ORDERED: methylPREDNISolone 125 MG/2 ML VIAL IVP ONE (05:52)
[2022-02-25] MEDS ORDERED: methylPREDNISolone 125 MG/2 ML VIAL ONE (05:52)
[2022-02-25 06:01] LABS: ABG Base Excess -5 mEq/L (-2 to 3); ABG HCO3 20 mEq/L (21-27); ABG Oxygen Saturation 99 % (95-98); ABG PCO2 39 mmHg (35-45); ABG PH 7.33 pH Units (7.32-7.45); ABG PO2 169 mmHg (85-104); ABG TCO2 22 mEq/L (20-26); Blood Gas Modality BiLevel
[2022-02-25 06:05] LABS: VBG HCO3 21 mEq/L (21-27); VBG PCO2 43 mmHg (41-51); VBG PO2 211 mmHg (25-50)
[2022-02-25 06:08] LABS: Basophils # 0.1 K/mcL (0.0-0.2); Basophils % 0.6 %; Eosinophils # 0.6 K/mcL (0.0-0.6); Eosinophils % 4.4 %; Hematocrit 35.9 % (37.5-50.1); Hemoglobin 11.3 g/dL (12.9-16.9); Immature Granulocytes % 0.3 % (0-4); Lymphocytes # 3.2 K/mcL (0.6-4.6); Lymphocytes % 22.9 %; Mean Corpuscular HGB Conc 31.5 g/dL (31.6-35.5); Mean Corpuscular Hemoglobin 29.5 pg (28.0-33.3); Mean Corpuscular Volume 93.7 fL (83.0-100.0); Mean Platelet Volume 10.4 fL (9.4-12.4); Monocytes # 0.9 K/mcL (0.0-1.3); Monocytes % 6.2 %; Neutrophils # 9.2 K/mcL (1.6-8.9); Platelet Count 275 K/mcL (140-400); Red Blood Count 3.83 M/mcL (4.19-5.50); Red Cell Distribution Width 13.8 % (11.5-14.5); Segmented Neutrophils % 65.6 %; White Blood Count 13.9 K/mcL (4.3-11.1)
[2022-02-25 06:36] LABS: Albumin 4.2 g/dL (3.5-5.7); Albumin/Globulin Ratio 1.2 (1.1-2.2); Bilirubin,Direct 0.1 mg/dL (0.0-0.2); Bilirubin,Indirect 0.5 mg/dL (0.0-1.0); Bilirubin,Total 0.6 mg/dL (0.3-1.0); Calcium 8.4 mg/dL (8.6-10.3); Globulin 3.4 g/dL (2.4-3.5); Potassium 5.3 mEq/L (3.5-5.1); Total Protein 7.6 g/dL (6.4-8.9); Troponin I 0.16 ng/mL (< 0.04)
[2022-02-25 06:44] LABS: Influenza A PCR Negative (Negative); Influenza B PCR Negative (Negative); Resp. Syncytial Virus PCR Negative (Negative)
[2022-02-25 06:47] LABS: SARS-CoV-2 by PCR (In House) Negative (Negative)
[2022-02-25] MEDS ORDERED: Acetaminophen 325 MG TABLET PO PRN (08:30)
[2022-02-25] MEDS ORDERED: Naloxone 0.4 MG/ML INJ IVP PRN (08:30)
[2022-02-25] MEDS ORDERED: Ondansetron 4 MG/2 ML VIAL IVP PRN (08:30)
[2022-02-25] MEDS ORDERED: 0.9 % Sodium Chloride 250 ML IVC PRN (08:31)
[2022-02-25] MEDS ORDERED: Ipratropium/Albuterol Neb 3 ML IH PRN (08:37)
[2022-02-25] MEDS ORDERED: *HR* Dextrose 50 % in Water (Syg) 50 ML SYRINGE IVP PRN (08:41)
[2022-02-25] MEDS ORDERED: D5% in Water 1,000 ML IVC PRN (08:41)
[2022-02-25] MEDS ORDERED: Dextrose Gel 15 GM/37.5 ML TUBE PO PRN ×2 (08:41)
[2022-02-25] MEDS ORDERED: 0.9 % Sodium Chloride 2,000 ML PRIME SCH (08:45)
[2022-02-25] MEDS ORDERED: *HR* Heparin 10,000 UNIT/10 ML VIAL IV PRN (09:12)
[2022-02-25 10:16] LABS: Hepatitis B Surface Antibody 466.06 mIU/mL
[2022-02-25 10:27] LABS: Hepatitis B Surface Antigen Nonreactive (Nonreactive)
[2022-02-25] MEDS ORDERED: Insulin LISPRO 300 UNITS/3 ML VIAL SUBQ SCH (12:00)
[2022-02-25] MEDS: cefTRIAXone 1,000 MG in Water for inj. (sterile) 10 ML IVP SCH (13:38)
[2022-02-25] MEDS: Azithromycin 500 MG in D5% in Water 250 ML IVPB SCH (13:39)
[2022-02-25] MEDS: *HR* Heparin 5,000 UNIT/ML VIAL SQ SCH ×2 (13:40→21:43)
[2022-02-25 15:53] LABS: Bilirubin,Urine Negative (Negative); Blood,Urine Negative (Negative); Clarity,Urine Clear (Clear); Color,Urine Light-Yellow (Yellow); Glucose,Urine (UA) 500 mg/dL (Normal); Hyaline Casts,Urine Few per lpf (None Seen); Ketones,Urine Negative (Negative); Leukocyte Esterase,Urine Negative (Negative); Mucus,Urine Few per lpf (None-Few); Nitrite,Urine Negative (Negative); Protein,Urine >=600 mg/dL (Neg-Trace); RBC,Urine 0-3 per hpf (0-3); Specific Gravity,Urine 1.016 (1.010-1.025); Urobilinogen,Urine Normal (Normal); WBC,Urine 0-3 per hpf (0-3)
[2022-02-25] MEDS: Aspirin Enteric Coated 81 MG Tablet PO SCH (16:12)
[2022-02-25] MEDS: *HR* Ticagrelor 90 MG TABLET PO SCH ×2 (16:36→21:43)
[2022-02-25] MEDS: carvediloL 6.25 MG TABLET PO SCH (16:36)
[2022-02-25] MEDS: Insulin LISPRO 300 UNITS/3 ML VIAL SUBQ SCH ×2 (16:37→21:44)
[2022-02-26] MEDS: *HR* Heparin 5,000 UNIT/ML VIAL SQ SCH ×2 (05:05→14:46)
[2022-02-26 05:35] LABS: Basophils % 0.2 %; Eosinophils % 0.1 %; Hematocrit 30.9 % (37.5-50.1); Hemoglobin 9.8 g/dL (12.9-16.9); Immature Granulocytes % 0.4 % (0-4); Lymphocytes # 1.1 K/mcL (0.6-4.6); Lymphocytes % 9.2 %; Mean Corpuscular HGB Conc 31.7 g/dL (31.6-35.5); Mean Corpuscular Hemoglobin 29.5 pg (28.0-33.3); Mean Corpuscular Volume 93.1 fL (83.0-100.0); Mean Platelet Volume 10.9 fL (9.4-12.4); Monocytes # 0.9 K/mcL (0.0-1.3); Monocytes % 7.5 %; Neutrophils # 10.3 K/mcL (1.6-8.9); Platelet Count 220 K/mcL (140-400); Red Blood Count 3.32 M/mcL (4.19-5.50); Red Cell Distribution Width 13.7 % (11.5-14.5); Segmented Neutrophils % 82.6 %; White Blood Count 12.4 K/mcL (4.3-11.1)
[2022-02-26 05:55] LABS: Calcium 8.5 mg/dL (8.6-10.3); Potassium 5.4 mEq/L (3.5-5.1)
[2022-02-26] MEDS ORDERED: 0.9 % Sodium Chloride 250 ML IVC PRN (07:41)
[2022-02-26] MEDS ORDERED: 0.9 % Sodium Chloride 2,000 ML PRIME SCH (07:45)
[2022-02-26] MEDS: Insulin LISPRO 300 UNITS/3 ML VIAL SUBQ SCH ×4 (08:44→23:03)
[2022-02-26] MEDS: cefTRIAXone 1,000 MG in Water for inj. (sterile) 10 ML IVP SCH (08:45)
[2022-02-26] MEDS: carvediloL 6.25 MG TABLET PO SCH ×2 (08:45→17:32)
[2022-02-26] MEDS: Aspirin Enteric Coated 81 MG Tablet PO SCH (08:45)
[2022-02-26] MEDS: *HR* Ticagrelor 90 MG TABLET PO SCH ×2 (08:45→20:27)
[2022-02-26] MEDS: Azithromycin 500 MG in D5% in Water 250 ML IVPB SCH (08:46)
[2022-02-26] MEDS ORDERED: Loratadine 10 MG TABLET PO PRN (17:09)
[2022-02-26] MEDS: Apixaban 5 MG TABLET PO SCH (20:27)
[2022-02-27 03:18] VITALS: PULSE 66
[2022-02-27 03:51] LABS: Basophils % 0.5 %; Eosinophils # 0.3 K/mcL (0.0-0.6); Hematocrit 31.8 % (37.5-50.1); Immature Granulocytes % 0.4 % (0-4); Lymphocytes # 2.1 K/mcL (0.6-4.6); Lymphocytes % 24.9 %; Mean Corpuscular HGB Conc 31.4 g/dL (31.6-35.5); Mean Corpuscular Hemoglobin 29.5 pg (28.0-33.3); Mean Corpuscular Volume 93.8 fL (83.0-100.0); Mean Platelet Volume 11.3 fL (9.4-12.4); Monocytes # 0.7 K/mcL (0.0-1.3); Monocytes % 7.9 %; Neutrophils # 5.3 K/mcL (1.6-8.9); Platelet Count 214 K/mcL (140-400); Red Blood Count 3.39 M/mcL (4.19-5.50); Red Cell Distribution Width 13.8 % (11.5-14.5); Segmented Neutrophils % 63.3 %; White Blood Count 8.4 K/mcL (4.3-11.1)
[2022-02-27 03:58] LABS: Estimated Average Glucose 137 mg/dl; Hemoglobin A1C 6.4 %
[2022-02-27 04:12] LABS: Potassium 4.9 mEq/L (3.5-5.1)
[2022-02-27 07:32] VITALS: O2SAT 97
[2022-02-27] MEDS ORDERED: 0.9 % Sodium Chloride 250 ML IVC PRN (07:53)
[2022-02-27] MEDS ORDERED: 0.9 % Sodium Chloride 2,000 ML PRIME SCH (08:00)
[2022-02-27] MEDS: cefTRIAXone 1,000 MG in Water for inj. (sterile) 10 ML IVP SCH (08:47)
[2022-02-27] MEDS: Azithromycin 500 MG in D5% in Water 250 ML IVPB SCH (08:48)
[2022-02-27] MEDS: Insulin LISPRO 300 UNITS/3 ML VIAL SUBQ SCH ×2 (08:49→11:45)
[2022-02-27] MEDS: *HR* Ticagrelor 90 MG TABLET PO SCH (08:49)
[2022-02-27] MEDS: carvediloL 6.25 MG TABLET PO SCH (08:49)
[2022-02-27] MEDS: Apixaban 5 MG TABLET PO SCH (08:49)
[2022-02-27] MEDS ORDERED: hydrALAZINE 25 MG TABLET PO SCH (09:00)
[2022-02-27] MEDS ORDERED: *HR* Heparin 10,000 UNIT/10 ML VIAL IV PRN (09:18)
[2022-02-27 13:10] VITALS: BP 132/80; TEMP 98.1
== END 2022-02-27 16:02 | disposition home or self-care (01) | DRG 291 ==
LOC: EMEROOARM 05:38 → 2NENU 05:38 → SUATTDRO 08:41 → 2NENU 11:57
PROVIDERS: ADMIT General Practice; ATTEND Student in an Organized Health Care Education/Training Program

== ENCOUNTER 2022-03-09 23:43 | Inpatient (IN) ==
[2022-03-09] MEDS ORDERED: Ipratropium/Albuterol Neb 3 ML IH ONE (23:47)
[2022-03-09] MEDS ORDERED: Furosemide 40 MG/4 ML VIAL ONE (23:50)
[2022-03-09] MEDS ORDERED: Bumetanide 1 MG/4 ML VIAL IVP ONE (23:52)
[2022-03-10 00:12] LABS: Basophils % 0.4 %; Eosinophils % 2.4 %; Red Cell Distribution Width 13.5 % (11.5-14.5)
[2022-03-10 00:14] LABS: VBG HCO3 26 mEq/L (21-27); VBG PCO2 55 mmHg (41-51); VBG PH 7.29 pH Units (7.32-7.42); VBG PO2 260 mmHg (25-50)
[2022-03-10 00:14] LABS: Basophils # 0.1 K/mcL (0.0-0.2); Eosinophils # 0.6 K/mcL (0.0-0.6); Hematocrit 33.4 % (37.5-50.1); Hemoglobin 10.5 g/dL (12.9-16.9); Immature Granulocytes % 0.6 % (0-4); Lymphocytes # 4.5 K/mcL (0.6-4.6); Lymphocytes % 17.7 %; Mean Corpuscular HGB Conc 31.4 g/dL (31.6-35.5); Mean Corpuscular Hemoglobin 29.7 pg (28.0-33.3); Mean Corpuscular Volume 94.4 fL (83.0-100.0); Mean Platelet Volume 10.8 fL (9.4-12.4); Monocytes # 1.2 K/mcL (0.0-1.3); Monocytes % 4.6 %; Neutrophils # 18.7 K/mcL (1.6-8.9); Platelet Count 281 K/mcL (140-400); Red Blood Count 3.54 M/mcL (4.19-5.50); Segmented Neutrophils % 74.3 %; White Blood Count 25.2 K/mcL (4.3-11.1)
[2022-03-10] MEDS ORDERED: Morphine Sulfate 2 MG/ML SYRINGE IVP ONE (00:39)
[2022-03-10 00:42] LABS: Albumin 4.1 g/dL (3.5-5.7); Albumin/Globulin Ratio 1.2 (1.1-2.2); Bilirubin,Direct 0.1 mg/dL (0.0-0.2); Bilirubin,Indirect 0.3 mg/dL (0.0-1.0); Bilirubin,Total 0.4 mg/dL (0.3-1.0); Calcium 8.9 mg/dL (8.6-10.3); Globulin 3.5 g/dL (2.4-3.5); Potassium 4.7 mEq/L (3.5-5.1); Total Protein 7.6 g/dL (6.4-8.9); Troponin I 0.31 ng/mL (< 0.04)
[2022-03-10] MEDS ORDERED: Aspirin 81 MG TAB.CHEW PO ONE (00:53)
[2022-03-10 00:58] LABS: Platelet Estimate Normal (Normal)
[2022-03-10 00:59] LABS: INR 1.1; Prothrombin Time 12.2 Seconds (9.4-12.1)
[2022-03-10 01:02] LABS: Activated Partial Thrombo Time 29.7 Seconds (26.0-36.0)
[2022-03-10] MEDS ORDERED: *HR* FentaNYL (PF) 100 MCG/2 ML VIAL IVP ONE (02:05)
[2022-03-10 02:19] LABS: Influenza A PCR Negative (Negative); Influenza B PCR Negative (Negative); Resp. Syncytial Virus PCR Negative (Negative)
[2022-03-10 02:21] LABS: SARS-CoV-2 by PCR (In House) Negative (Negative)
[2022-03-10] MEDS ORDERED: Acetaminophen 325 MG TABLET PO PRN (03:13)
[2022-03-10] MEDS ORDERED: Naloxone 0.4 MG/ML INJ IVP PRN ×2 (03:13→03:56)
[2022-03-10] MEDS ORDERED: Ondansetron 4 MG/2 ML VIAL IVP PRN (03:13)
[2022-03-10] MEDS ORDERED: D5% in Water 1,000 ML IVC PRN (03:55)
[2022-03-10] MEDS ORDERED: *HR* Dextrose 50 % in Water (Vial) 50 ML VIAL IVP PRN (03:55)
[2022-03-10] MEDS ORDERED: Dextrose Gel 15 GM/37.5 ML TUBE PO PRN ×2 (03:55)
[2022-03-10] MEDS ORDERED: Ipratropium/Albuterol Neb 3 ML IH PRN (04:56)
[2022-03-10] MEDS ORDERED: Azithromycin 500 MG in 0.9 % Sodium Chloride 250 ML IVPB SCH (05:00)
[2022-03-10] MEDS: Insulin LISPRO 300 UNITS/3 ML VIAL SUBQ SCH ×3 (05:11→17:15)
[2022-03-10 06:14] LABS: Hematocrit 29.4 % (37.5-50.1); Hemoglobin 9.5 g/dL (12.9-16.9); Mean Corpuscular HGB Conc 32.3 g/dL (31.6-35.5); Mean Corpuscular Hemoglobin 30.4 pg (28.0-33.3); Mean Corpuscular Volume 93.9 fL (83.0-100.0); Mean Platelet Volume 10.8 fL (9.4-12.4); Platelet Count 195 K/mcL (140-400); Red Blood Count 3.13 M/mcL (4.19-5.50); Red Cell Distribution Width 13.8 % (11.5-14.5)
[2022-03-10 06:16] LABS: White Blood Count 10.5 K/mcL (4.3-11.1)
[2022-03-10 06:34] LABS: Troponin I 0.53 ng/mL (< 0.04)
[2022-03-10 07:11] LABS: Calcium 8.2 mg/dL (8.6-10.3); Potassium 6.3 mEq/L (3.5-5.1)
[2022-03-10] MEDS ORDERED: Vancomycin 1,250 MG/262.5 ML IV.SOLN IVPB ONE (08:00)
[2022-03-10] MEDS: Piperacillin/Tazobactam 3.375 GM in 0.9 % Sodium Chloride Mini Bag 100 ML IVPB SCH ×2 (08:04→20:18)
[2022-03-10] MEDS ORDERED: cefTRIAXone 2,000 MG in 0.9 % Sodium Chloride 20 ML IVP SCH (09:00)
[2022-03-10] MEDS ORDERED: SODIUM ZIRCONIUM CYCLOSILICATE 5 GM POWD.PACK PO ONE (09:00)
[2022-03-10] MEDS ORDERED: 0.9 % Sodium Chloride 250 ML IVC PRN (11:46)
[2022-03-10] MEDS ORDERED: *HR* Heparin 10,000 UNIT/10 ML VIAL IV PRN (11:46)
[2022-03-10] MEDS ORDERED: 0.9 % Sodium Chloride 2,000 ML PRIME SCH (12:00)
[2022-03-10 22:05] LABS: Bacteria,Urine Few per hpf (None-Few); Bilirubin,Urine Negative (Negative); Blood,Urine Negative (Negative); Clarity,Urine Clear (Clear); Color,Urine Light-Yellow (Yellow); Glucose,Urine (UA) 500 mg/dL (Normal); Ketones,Urine Negative (Negative); Leukocyte Esterase,Urine Negative (Negative); Mucus,Urine Few per lpf (None-Few); Nitrite,Urine Negative (Negative); PH,Urine 8.5 pH Units (5.0-8.0); Protein,Urine >=600 mg/dL (Neg-Trace); RBC,Urine 0-3 per hpf (0-3); Specific Gravity,Urine 1.016 (1.010-1.025); Squamous Epithelial Cell,Urine Few per hpf (None-Few); Urobilinogen,Urine Normal (Normal)
[2022-03-11] MEDS: Insulin LISPRO 300 UNITS/3 ML VIAL SUBQ SCH ×6 (00:08→21:45)
[2022-03-11] MEDS: Azithromycin 500 MG in 0.9 % Sodium Chloride 250 ML IVPB SCH (06:06)
[2022-03-11] MEDS: Piperacillin/Tazobactam 3.375 GM in 0.9 % Sodium Chloride Mini Bag 100 ML IVPB SCH ×2 (08:33→19:50)
[2022-03-11] MEDS ORDERED: 0.9 % Sodium Chloride 250 ML IVC PRN (08:48)
[2022-03-11] MEDS ORDERED: *HR* Heparin 10,000 UNIT/10 ML VIAL IV PRN (08:54)
[2022-03-11 10:47] LABS: Hematocrit 27.9 % (37.5-50.1); Hemoglobin 8.9 g/dL (12.9-16.9); Mean Corpuscular HGB Conc 31.9 g/dL (31.6-35.5); Mean Corpuscular Volume 93.9 fL (83.0-100.0); Mean Platelet Volume 10.7 fL (9.4-12.4); Platelet Count 168 K/mcL (140-400); Red Blood Count 2.97 M/mcL (4.19-5.50); White Blood Count 7.7 K/mcL (4.3-11.1)
[2022-03-11 11:24] LABS: Calcium 8.2 mg/dL (8.6-10.3); Potassium 4.7 mEq/L (3.5-5.1)
[2022-03-11] MEDS ORDERED: Perflutren Lipid Microsphere 1.3 ML in 0.9 % Sodium Chloride 8.7 ML IVP PRN (13:27)
[2022-03-12 03:49] LABS: Hematocrit 29.9 % (37.5-50.1); Hemoglobin 9.6 g/dL (12.9-16.9); Mean Corpuscular HGB Conc 32.1 g/dL (31.6-35.5); Mean Corpuscular Hemoglobin 30.1 pg (28.0-33.3); Mean Corpuscular Volume 93.7 fL (83.0-100.0); Mean Platelet Volume 10.6 fL (9.4-12.4); Platelet Count 201 K/mcL (140-400); Red Blood Count 3.19 M/mcL (4.19-5.50); Red Cell Distribution Width 13.4 % (11.5-14.5); White Blood Count 6.8 K/mcL (4.3-11.1)
[2022-03-12] MEDS: Azithromycin 500 MG in 0.9 % Sodium Chloride 250 ML IVPB SCH (05:57)
[2022-03-12] MEDS: Piperacillin/Tazobactam 3.375 GM in 0.9 % Sodium Chloride Mini Bag 100 ML IVPB SCH ×2 (07:45→20:15)
[2022-03-12] MEDS: Insulin LISPRO 300 UNITS/3 ML VIAL SUBQ SCH ×4 (07:46→20:31)
[2022-03-12] MEDS: *HR* Ticagrelor 90 MG TABLET PO SCH ×2 (10:25→20:15)
[2022-03-12] MEDS ORDERED: *HR* Heparin 5,000 UNIT/ML VIAL IVP PRN (11:14)
[2022-03-12] MEDS ORDERED: *HR* Heparin 5,000 UNIT/ML VIAL IVP ONE (11:14)
[2022-03-12] MEDS: Heparin 25,000UNIT/250ML 1/2NS 25,000 UNIT/250 ML IV.SOLN IVC SCH (12:35)
[2022-03-12 12:59] LABS: Heparin anti-factor XA UFH < 0.04 IU/mL (0.30-0.70)
[2022-03-12 13:00] LABS: INR 1.1; Prothrombin Time 12.6 Seconds (9.4-12.1)
[2022-03-12] MEDS: carvediloL 6.25 MG TABLET PO SCH (16:39)
[2022-03-12] MEDS: *HR* Heparin 5,000 UNIT/ML VIAL IVP PRN (20:12)
[2022-03-13 02:14] LABS: Hematocrit 29.1 % (37.5-50.1); Hemoglobin 9.5 g/dL (12.9-16.9); Mean Corpuscular HGB Conc 32.6 g/dL (31.6-35.5); Mean Corpuscular Hemoglobin 30.4 pg (28.0-33.3); Mean Corpuscular Volume 93.3 fL (83.0-100.0); Mean Platelet Volume 10.6 fL (9.4-12.4); Platelet Count 185 K/mcL (140-400); Red Blood Count 3.12 M/mcL (4.19-5.50); Red Cell Distribution Width 13.6 % (11.5-14.5)
[2022-03-13] MEDS: *HR* Heparin 5,000 UNIT/ML VIAL IVP PRN (03:41)
[2022-03-13] MEDS: Azithromycin 500 MG in 0.9 % Sodium Chloride 250 ML IVPB SCH (05:37)
[2022-03-13] MEDS: Insulin LISPRO 300 UNITS/3 ML VIAL SUBQ SCH ×4 (07:16→20:05)
[2022-03-13] MEDS ORDERED: 0.9 % Sodium Chloride 250 ML IVC PRN (08:17)
[2022-03-13] MEDS ORDERED: *HR* Heparin 10,000 UNIT/10 ML VIAL IV PRN (08:17)
[2022-03-13] MEDS: Piperacillin/Tazobactam 3.375 GM in 0.9 % Sodium Chloride Mini Bag 100 ML IVPB SCH ×2 (08:48→19:48)
[2022-03-13] MEDS: *HR* Ticagrelor 90 MG TABLET PO SCH ×2 (08:49→19:47)
[2022-03-13] MEDS: Isosorbide MONOnitrate (24 HR) 30 MG TAB.ER.24H PO SCH (08:49)
[2022-03-13 10:04] LABS: Calcium 8.4 mg/dL (8.6-10.3); Potassium 4.6 mEq/L (3.5-5.1)
[2022-03-13] MEDS: carvediloL 6.25 MG TABLET PO SCH ×2 (13:30→19:47)
[2022-03-13] MEDS: Heparin 25,000UNIT/250ML 1/2NS 25,000 UNIT/250 ML IV.SOLN IVC SCH (15:07)
[2022-03-13] MEDS: hydrALAZINE 25 MG TABLET PO SCH (16:17)
[2022-03-14] MEDS: hydrALAZINE 25 MG TABLET PO SCH ×2 (00:53→08:07)
[2022-03-14 02:52] LABS: Basophils % 0.7 %; Eosinophils # 0.5 K/mcL (0.0-0.6); Eosinophils % 7.5 %; Hematocrit 27.1 % (37.5-50.1); Hemoglobin 8.8 g/dL (12.9-16.9); Immature Granulocytes % 0.2 % (0-4); Lymphocytes # 1.3 K/mcL (0.6-4.6); Lymphocytes % 21.8 %; Mean Corpuscular HGB Conc 32.5 g/dL (31.6-35.5); Mean Corpuscular Hemoglobin 29.9 pg (28.0-33.3); Mean Corpuscular Volume 92.2 fL (83.0-100.0); Mean Platelet Volume 10.7 fL (9.4-12.4); Monocytes # 0.5 K/mcL (0.0-1.3); Neutrophils # 3.8 K/mcL (1.6-8.9); Platelet Count 208 K/mcL (140-400); Red Blood Count 2.94 M/mcL (4.19-5.50); Red Cell Distribution Width 13.7 % (11.5-14.5); Segmented Neutrophils % 61.8 %; White Blood Count 6.1 K/mcL (4.3-11.1)
[2022-03-14 03:10] LABS: Calcium 8.1 mg/dL (8.6-10.3); Potassium 4.2 mEq/L (3.5-5.1)
[2022-03-14] MEDS ORDERED: Acetaminophen 325 MG TABLET PO PRN (03:13)
[2022-03-14] MEDS: *HR* Heparin 5,000 UNIT/ML VIAL IVP PRN (03:25)
[2022-03-14 05:32] VITALS: TEMP 97.9
[2022-03-14 07:48] VITALS: BP 152/90; PULSE 75; O2SAT 97
[2022-03-14] MEDS: Insulin LISPRO 300 UNITS/3 ML VIAL SUBQ SCH (08:09)
[2022-03-14] MEDS ORDERED: Azithromycin 250 MG TABLET PO SCH (09:00)
[2022-03-14] MEDS: carvediloL 6.25 MG TABLET PO SCH (09:16)
[2022-03-14] MEDS: Piperacillin/Tazobactam 3.375 GM in 0.9 % Sodium Chloride Mini Bag 100 ML IVPB SCH (09:16)
[2022-03-14] MEDS: Isosorbide MONOnitrate (24 HR) 30 MG TAB.ER.24H PO SCH (09:16)
[2022-03-14] MEDS: *HR* Ticagrelor 90 MG TABLET PO SCH (09:16)
== END 2022-03-14 11:41 | disposition home or self-care (01) | DRG 871 ==
LOC: EMEROOARM 23:43 → ICNU 23:43 → SUATTDRO 03-10 03:33 → 2ANU 03-12 08:06
PROVIDERS: ADMIT Internal Medicine; ATTEND Student in an Organized Health Care Education/Training Program